=== PATIENT | male | born 1990 | race African-American/Black ===

== ENCOUNTER 2018-06-18 11:27 | Emergency (ER) | payer SELFPAY ==
[2018-06-18 11:36] VITALS: BP 139/79
[2018-06-18] MEDS ORDERED: NAPROXEN 250 MG TABLET PO ONE (11:52)
[2018-06-18] MEDS ORDERED: LIDOCAINE 2% VISCOUS SOLN 20 ML UDCUP PO ONE (11:52)
[2018-06-18] MEDS ORDERED: PENICILLIN V POTASSIUM 500 MG TABLET PO ONE (11:52)
--- NOTE | 2018-06-18 11:54 | ER Document Report ---
ED Oral Problem - General Chief Complaint: Toothache Stated Complaint: TOOTHACHE AND EAR PAIN Time Seen by Provider: 06/18/18 11:42 Mode of Arrival: Ambulatory Information source: Patient Notes: 27-year-old male presented to ED for dental pain to the left lower jaw that started last night and has been continued until it is called ear pain. Patient states he has had pain off and on for several months but this is only been going on since yesterday. He states he did not had the money to go and have the tooth fixed and so the pains come back worse this time. TRAVEL OUTSIDE OF THE [place] IN LAST 30 DAYS: No - HPI Patient complains to provider of: Toothache Onset: Other - Has had the pain off and on but this time is been since yesterday Onset: Gradual Quality of pain: Throbbing Severity: Severe Pain Level: 5 Associated symptoms: Toothache Worsened by: Nothing Relieved by: Nothing Similar symptoms previously: Yes Recently seen / treated by doctor/dentist: No - Related Data Allergies/Adverse Reactions: No Known Allergies Allergy (Verified 06/18/18 11:32) Past Medical History - General Information source: Patient - Social History Smoking Status: Current Every Day Smoker Cigarette use (# per day): Yes - Half pack a day Smoking Education Provided: Yes - 4 minutes Frequency of alcohol use: None Drug Abuse: None Lives with: Family Family History: Reviewed & Not Pertinent Patient has suicidal ideation: No Patient has homicidal ideation: No - Past Medical History Cardiac Medical History: Reports: None Pulmonary Medical History: Reports: None EENT Medical History: Reports: None Neurological Medical History: Reports: None Endocrine Medical History: Reports: None Renal/ Medical History: Reports: None Malignancy Medical History: Reports None GI Medical History: Reports: None Musculoskeletal Medical History: Reports None Skin Medical History: Reports Hx Cellulitis Psychiatric Medical History: Reports: None Traumatic Medical History: Reports: None Infectious Medical History: Reports: None - Immunizations Hx Diphtheria, Pertussis, Tetanus Vaccination: Yes Review of Systems - Review of Systems Constitutional: No symptoms reported EENT: Dental problem Cardiovascular: No symptoms reported Respiratory: No symptoms reported Gastrointestinal: No symptoms reported Genitourinary: No symptoms reported Male Genitourinary: No symptoms reported Musculoskeletal: No symptoms reported Skin: No symptoms reported Hematologic/Lymphatic: No symptoms reported Neurological/Psychological: No symptoms reported -: Yes All other systems reviewed and negative Physical Exam - Vital signs Vitals: Temp Pulse Resp BP Pulse Ox 98.5 F 68 18 139/79 H 100 06/18/18 11:33 06/18/18 11:33 06/18/18 11:33 06/18/18 11:33 06/18/18 11:33 Interpretation: Normal - General General appearance: Appears well, Alert - HEENT Head: Normocephalic, Atraumatic Eyes: Normal Pupils: PERRL Ears: Normal External canal: Normal Tympanic membrane: Normal Nasal: Normal Mouth/Lips: Caries - Multiple dental cavities, mild erythema lower gums Mucous membranes: Normal Pharynx: Normal Neck: Normal - Respiratory Respiratory status: No respiratory distress Chest status: Nontender Breath sounds: Normal Chest palpation: Normal - Cardiovascular Rhythm: Regular Heart sounds: Normal auscultation Murmur: No - Abdominal Inspection: Normal Distension: No distension Bowel sounds: Normal Tenderness: Nontender Organomegaly: No organomegaly - Back Back: Normal, Nontender - Extremities General upper extremity: Normal inspection, Nontender, Normal color, Normal ROM , Normal temperature General lower extremity: Normal inspection, Nontender, Normal color, Normal ROM , Normal temperature, Normal weight bearing. No: Ely's sign - Neurological Neuro grossly intact: Yes Cognition: Normal Orientation: AAOx4 Tyshawn Coma Scale Eye Opening: Spontaneous Tyshawn Coma Scale Verbal: Oriented Tyshawn Coma Scale Motor: Obeys Commands Tyshawn Coma Scale Total: 15 Speech: Normal Motor strength normal: LUE, RUE, LLE, RLE Sensory: Normal - Psychological Associated symptoms: Normal affect, Normal mood - Skin Skin Temperature: Warm Skin Moisture: Dry Skin Color: Normal Course - Re-evaluation Re-evalutation: 06/18/18 22:51 Presentation is most consistent with likely an infected tooth. Airway is patent. Vitals within normal limits. Patient is able swallow without any difficulty. There is no significant facial swelling. No evidence of Rene angina, apical abscess, or airway obstruction. Patient will be started on antibiotics. I've instructed to follow-up with dentistry as earliest ability for definitive management. At this time will discharge with return precautions and follow-up recommendations. Verbal discharge instructions given a the bedside and opportunity for questions given. Medication warnings reviewed. Patient is in agreement with this plan and has verbalized understanding of return precautions and the need for primary care follow-up in the next 24-72 hours. - Vital Signs Vital signs: Temp Pulse Resp BP Pulse Ox 98.5 F 68 18 139/79 H 100 06/18/18 11:33 12 11:33 06/18/18 11:33 06/18/18 11:33 06/18/18 11:33 Discharge - Discharge Clinical Impression: Pain due to dental caries Condition: Stable Disposition: HOME, SELF-CARE Additional Instructions: TOOTHACHE: Your pain is due to dental decay. The tooth must be repaired in order for you to feel better. You will, therefore, be referred to a dentist. We do not have dentists on the staff at [facility]. Severe swelling or drainage around a tooth usually means a dental abscess. This also requires evaluation and treatment by the dentist, but antibiotics may be prescribed while awaiting dental treatment. You should be rechecked immediately if you develop major swelling of the face, increasing pain, a lump in the jaw or gums, headache, difficulty swallowing, or fever. PENICILLIN V K: You have been given a prescription for Penicillin VK. Your physician has determined that this is the best antibiotic for your condition. Pen VK can be taken with meals, however more of the antibiotic gets into the bloodstream if it's taken on an empty stomach. Penicillin usually has no side effects. However, allergy to penicillins is common. If you have had an allergic reaction to any drug of the penicillin family, you should never take any other penicillin. Notify your doctor at once if you develop hives, itching, swelling, faintness, or shortness of breath. Anti-Inflammatory Medication You have received a prescription for an antiinflammatory agent. This is an excellent, safe drug for pain control. In addition, it has potent antiinflammatory effects which are beneficial, especially in the treatment of injuries, arthritis, or tendonitis. It's best to take this medicine with food. Persons with ulcer disease or allergy to aspirin should notify their physician of this before taking this drug. Take the medication exactly as prescribed. Don't take additional doses unless instructed to do so by your doctor. If you develop wheezing, shortness of breath, hives, faintness, stomach pain, vomiting, or dark black stools, return for re-evaluation at once. Use the lidocaine by placing a small amount on your finger applying it to the tooth every 3 hours as needed for pain. Take your anti-inflammatory medications as prescribed. FOLLOW-UP CARE: You have been referred for follow-up care to the dentists listed below. Call the dentists office for an appointment as you were instructed or within the next two days. If you experience worsening or a significant change in your symptoms, notify the physician immediately or return to the Emergency Department at any time for re-evaluation. [facility] [address] [place], [place] [facility] [address] [place] [address] [facility] [address] [facility] [address] [facility] ([facility]) [facility] [address] [email or web address] [address] [place] [address] Sunday- 8:00am to 5:00 pm Will see patients from other [facility]. Charges based on income and family size and accepts Medicare, Medicaid, and Insurances Will pull molars [facility] [id number] Hours of Operation 8:00 am - 4:30 pm weekdays The following dental offices accept Medicaid: [facility] Dr. Llanos Dr. Beltran Dr. Vazquez Dr. Baptiste Kevin Villalba [place], and [facility] oral surgery Dr. Hernandez ([place]) Dr. Heath ([place]) [facility] Drs. Brewer and Evan ([place]) Dr. Oscar ([place]) [facility] Dr. Flood ([place]) Drs. Powell and ([place]) Medicaid Care Line Prescriptions: Naproxen 500 mg PO BIDP PRN #14 tablet PRN Reason: Penicillin V Potassium [Penicillin Vk 500 mg Tablet] 500 mg PO QID #28 tablet Forms: Elevated Blood Pressure, Smoking Cessation Education, Return to Work
== END 2018-06-18 16:35 | disposition home or self-care (01) ==
LOC: ER 11:27
DX: K02.9 Dental caries, unspecified (principal); K08.89 Other specified disorders of teeth and supporting structures; F17.210 Nicotine dependence, cigarettes, uncomplicated; Z71.6 Tobacco abuse counseling
CPT/HCPCS: 99406; 99282; J3490

== ENCOUNTER 2018-11-25 15:34 | Emergency (ER) | payer SELFPAY ==
[2018-11-25] MEDS ORDERED: OXYCODONE-ACETAMINOPHEN 5-325 MG TABLET PO ONE (17:24)
[2018-11-25] MEDS ORDERED: PENICILLIN V POTASSIUM 500 MG TABLET PO ONE (17:24)
[2018-11-25] MEDS ORDERED: HYDROCODONE/ACETAMINOPHEN 5-325 MG (6 TAB/ER DISP) PO PRN (17:24)
--- NOTE | 2018-11-25 17:26 | ER Document Report ---
HPI - HPI Patient complains to provider of: Dental pain radiating to his left ear Time Seen by Provider: 11/25/18 17:11 Onset: Yesterday Onset/Duration: Sudden Quality of pain: Achy Severity: Severe Pain Level: 5 Context: Patient presents today with complaints of left sided lower dental pain that started last night. Patient complains of severe pain. Denies injury. Reports is just started hurting and now radiates to left ear. He reports he took Motrin without relief of symptoms. Does not have insurance. Denies other symptoms such as fever vomiting diarrhea. Denies sensitivity to heat or cold. Associated Symptoms: None Exacerbated by: Denies Relieved by: Denies Similar symptoms previously: No Recently seen / treated by doctor: No Past Medical History - General Information source: Patient - Social History Smoking Status: Current Every Day Smoker Cigarette use (# per day): Yes Frequency of alcohol use: None Drug Abuse: None Occupation: [employer] Family History: Reviewed & Not Pertinent Patient has suicidal ideation: No Patient has homicidal ideation: No Renal/ Medical History: Denies: Hx Peritoneal Dialysis Skin Medical History: Reports Hx Cellulitis Surgical Hx: Negative - Immunizations Hx Diphtheria, Pertussis, Tetanus Vaccination: Yes Vertical Provider Document - CONSTITUTIONAL Agree With Documented VS: Yes Exam Limitations: No Limitations General Appearance: WD/WN, Mild Distress - Patient holding the side of his mouth looks uncomfortable - INFECTION CONTROL TRAVEL OUTSIDE OF THE [place] IN LAST 30 DAYS: No - HEENT HEENT: Atraumatic, Normocephalic. negative: Conjuctival Injection, Pharyngeal E rythema Mouth Diagram: 1 - Dental cavity noted no erythema no swelling no pustule opens mouth wide no trismus no Rene - NECK Neck: Normal Inspection, Supple. negative: Lymphadenopathy-Left, Lymphadenopathy-Right - RESPIRATORY Respiratory: Breath Sounds Normal, No Respiratory Distress - CARDIOVASCULAR Cardiovascular: Regular Rate - MUSCULOSKELETAL/EXTREMETIES Musculoskeletal/Extremeties: MAEW, FROM - NEURO Level of Consciousness: Awake, Alert, Appropriate Motor/Sensory: No Motor Deficit - DERM Integumentary: Warm, Dry Course - Re-evaluation Re-evalutation: 11/25/18 17:35 Patient looks extremely uncomfortable due to dental pain. Patient given written information on dental resources. Instructed on pain medications and penicillin. Instructed on the importance of follow-up with dental. He verbalized understanding to all instructions. Dictation of this chart was performed using voice recognition software; therefore, there may be some unintended grammatical errors. - Vital Signs Vital signs: Temp Pulse Resp BP Pulse Ox 98.6 F 70 16 151/79 H 97 11/25/18 16:22 11/25/18 16:22 11/25/18 16:22 11/25/18 16:22 11/25/18 16:22 Discharge - Discharge Clinical Impression: Pain, dental Condition: Stable Disposition: HOME, SELF-CARE Instructions: Oral Narcotic Medication ([facility]), Penicillin V K ([facility]), Toothache ([facility]) Additional Instructions: *You have been evaluated for dental pain *Take medications as prescribed (take the [place] for acute pain only) *Follow up with dentist this week *Return to ED for worsening condition, changes, needs Monitor your blood pressure. Your blood pressure was elevated today. This may be because you were anxious, in pain or because you need medication. It is important to follow up with your primary care provider for full evaluation. Prescriptions: Penicillin V Potassium [Penicillin Vk 500 mg Tablet] 500 mg PO BID #20 tablet Forms: Elevated Blood Pressure, Return to Work
[2018-11-25 18:25] VITALS: BP 140/83
== END 2018-11-25 17:55 | disposition home or self-care (01) ==
LOC: ER 15:34
DX: K08.9 Disorder of teeth and supporting structures, unspecified (principal); F17.210 Nicotine dependence, cigarettes, uncomplicated
CPT/HCPCS: 99282